=== PATIENT | male | born 1950 | race Caucasian/White ===

== ENCOUNTER 2016-06-21 13:45 | Outpatient (CLI) | payer MEDICARE | END 2016-06-21 13:46 | disposition home or self-care (01) | DX: Z85.46 Personal history of malignant neoplasm of prostate (principal) ==

== ENCOUNTER 2016-08-06 13:05 | Outpatient (CLI) | payer MEDICARE ==
[2016-08-06] MEDS ORDERED: ALBUTEROL NEB 2.5 MG/3 ML INH ONE (13:41)
== END 2016-08-06 13:06 | disposition home or self-care (01) ==
DX: R06.2 Wheezing (principal); R06.09 Other forms of dyspnea
CPT/HCPCS: 71020; 94060; J7613

== ENCOUNTER 2017-01-28 10:53 | Outpatient (CLI) | payer MEDICARE | END 2017-01-28 10:54 | disposition home or self-care (01) | LOC: LAB 10:53 | PROVIDERS: ATTEND Urology | DX: Z85.46 Personal history of malignant neoplasm of prostate (principal) | CPT/HCPCS: 36415; 84153 ==

== ENCOUNTER 2017-09-05 13:51 | Outpatient (CLI) | payer MEDICARE | END 2017-09-05 13:52 | disposition home or self-care (01) | LOC: LAB 13:51 | PROVIDERS: ATTEND Urology | DX: C61 Malignant neoplasm of prostate (principal) | CPT/HCPCS: 36415; 84153 ==

== ENCOUNTER 2018-03-16 07:19 | Outpatient (CLI) | payer MEDICARE ==
[2018-03-16 07:41] LABS: BASOPHILS % (AUTO) 0.7 %; EOSINOPHILS # (AUTO) 0.6 10^3/uL (0.0-0.7); EOSINOPHILS % (AUTO) 10.8 %; HGB - HEMOGLOBIN 14.2 g/dL (14.0-18.0); LYMPHOCYTES # (AUTO) 2.4 10^3/uL (1.5-3.5); LYMPHOCYTES % (AUTO) 40.9 %; MEAN CORPUSCULAR HEMOGLOBIN 31.3 pg (27.0-31.0); MEAN CORPUSCULAR HGB CONC 34.2 g/dL (32.0-36.0); MEAN CORPUSCULAR VOLUME 91.7 fL (80.0-94.0); MEAN PLATELET VOLUME 7.2 fL (7.4-11.4); MONOCYTES # (AUTO) 0.7 10^3/uL (0.0-1.0); MONOCYTES % (AUTO) 12.6 %; PLT - PLATELET COUNT 152 10^3/uL (130-450); RED BLOOD COUNT 4.54 10^6/uL (4.70-6.10); RED CELL DISTRIBUTION WIDTH 14.3 % (12.0-15.0); WHITE BLOOD COUNT 5.8 x10^3/uL (4.8-10.8)
[2018-03-16 08:02] LABS: ALBUMIN/GLOBULIN RATIO 1.2 (1.0-2.2); ALKALINE PHOSPHATASE 51 IU/L (42-121); ALT ALANINE AMINOTRANSFERASE 28 IU/L (10-60); AST ASPARTATE AMINOTRANSFERASE 28 IU/L (10-42); BILIRUBIN,TOTAL 0.9 mg/dL (0.2-1.0); BUN - BLOOD UREA NITROGEN 19 mg/dL (6-20); CALCIUM 8.8 mg/dL (8.5-10.3); CARBON DIOXIDE - CO2 28 mmol/L (21-32); CHLORIDE 105 mmol/L (101-111); CHOL/HDL RATIO 3.4 (<5.0); CHOLESTEROL 155 mg/dL; CREATININE 1.2 mg/dL (0.6-1.2); GFR - MDRD 60 (>89); GLUCOSE 102 mg/dL (70-100); HDL CHOLESTEROL 46 mg/dL; LDL CHOLESTEROL,CALCULATED 80 mg/dL; LDL/HDL RATIO 1.7 (<3.6); SODIUM 137 mmol/L (135-145); TOTAL PROTEIN 7.3 g/dL (6.7-8.2); VLDL CHOLESTEROL 29 mg/dL
== END 2018-03-16 07:20 | disposition home or self-care (01) ==
LOC: LAB 07:19
PROVIDERS: ATTEND Physician Assistant
DX: Z79.899 Other long term (current) drug therapy (principal); E78.5 Hyperlipidemia, unspecified
CPT/HCPCS: 36415; 80053; 80061; 83721; 85025

== ENCOUNTER 2018-03-20 09:57 | Outpatient (CLI) | payer MEDICARE | END 2018-03-20 09:58 | disposition home or self-care (01) | LOC: LAB 09:57 | PROVIDERS: ATTEND Urology | DX: C61 Malignant neoplasm of prostate (principal) | CPT/HCPCS: 36415; 84153 ==

== ENCOUNTER 2018-09-01 11:12 | Outpatient (CLI) | payer MEDICARE | END 2018-09-01 11:13 | disposition home or self-care (01) | LOC: LAB 11:12 | PROVIDERS: ATTEND Urology | DX: Z85.46 Personal history of malignant neoplasm of prostate (principal) | CPT/HCPCS: 36415; 84153 ==

== ENCOUNTER 2018-10-31 15:16 | Outpatient (CLI) | payer MEDICARE ==
--- NOTE | 2018-11-02 08:46 | MRI Report ---
Reason: NUMBNESS AND TINGLING IN LEFT ARM AND LEG,TIA Procedure Date: 10/31/2018 Accession Number: [id number] / [id number] Procedure: MRI - Angio Brain W/O (MRA) CPT Code: FULL RESULT: EXAM MRA BRAIN EXAM DATE: 10/31/2018 03:46 PM. CLINICAL HISTORY: Numbness and tingling in left arm and leg, TIA. COMPARISON: BRAIN W/O 10/31/2018 4:03 PM, NECK ANGIO W/O 10/31/2018 4:29 PM. TECHNIQUE: Multiplanar, multisequence MRA sequences of the brain were performed. Other: None. Post-processing: Multiplanar 3D MIP reconstructions. IV Contrast: None. FINDINGS: RIGHT Internal Carotid (ICA): No aneurysm, stenosis or anomaly. Middle Cerebral (MCA): No aneurysm, stenosis or anomaly. Anterior Cerebral (CHOLO): No aneurysm, stenosis or anomaly. Posterior Cerebral (AUDIO ENGINEER): No aneurysm, stenosis or anomaly. Posterior Communicating (P-COM): Not visualized. Vertebral: No aneurysm, stenosis or anomaly in the visualized upper vertebral artery. LEFT Internal Carotid (ICA): No aneurysm, stenosis or anomaly. Middle Cerebral (MCA): No aneurysm, stenosis or anomaly. Anterior Cerebral (CHOLO): No aneurysm, stenosis or anomaly. Posterior Cerebral (AUDIO ENGINEER): No aneurysm, stenosis or anomaly. Posterior Communicating (P-COM): Not visualized. Vertebral: No aneurysm, stenosis or anomaly in the visualized upper vertebral artery. MIDLINE Anterior Communicating (A-COM): No aneurysm, stenosis or anomaly. Basilar Artery:No aneurysm, stenosis or anomaly. Other: None. IMPRESSION: 1. Negative brain MRA. No stenoses or aneurysms. RADIA
--- NOTE | 2018-11-02 08:46 | MRI Report ---
Reason: NUMBNESS AND TINGLING IN LEFT ARM AND LEG,TIA Procedure Date: 10/31/2018 Accession Number: [id number] / [id number] Procedure: MRI - Angio Neck W/O (MRA) CPT Code: FULL RESULT: EXAM: MR ANGIOGRAM NECK, WITHOUT CONTRAST EXAM DATE: 10/31/2018 04:29 PM. CLINICAL HISTORY: Numbness and tingling in left arm and leg, TIA. COMPARISON: BRAIN W/O 10/31/2018 4:03 PM, BRAIN ANGIO W/O 10/31/2018 3:46 PM. TECHNIQUE: Axial 2D [id number] MRA sequences of the neck were performed. Axial 3D mhgl-vg-skmgge centered at the carotid bifurcation. Axial T1 with fat saturation through the neck. Other: None. Post-processing: Multiplanar 3D MIP reconstructions. IV Contrast: None. Evaluation of arterial stenosis is based on a NASCET method of measurement. FINDINGS: The aortic arch and origin of great vessels is not included on this study. RIGHT Common Carotid: Patent. No dissection or significant stenosis. Internal Carotid: Patent. No dissection or significant stenosis. External Carotid: Patent. No dissection or significant stenosis. Vertebral: Patent. No dissection or significant stenosis. LEFT Common Carotid: Patent. No dissection or significant stenosis. Internal Carotid: Patent. No dissection or significant stenosis. Note is made of a vascular loop in the proximal cervical ICA. External Carotid: Patent. No dissection or significant stenosis. Vertebral: Patent. No dissection or significant stenosis. Intracranial Circulation: (See report of MRA of the head performed same time.) Other: The soft tissues, bones, and lung apices are unremarkable. IMPRESSION: 1. Unremarkable noncontrast neck MRA. No hemodynamically significant stenoses. RADIA
--- NOTE | 2018-11-02 08:46 | MRI Report ---
Reason: NUMBNESS AND TINGLING IN LEFT ARM AND LEG,TIA Procedure Date: 10/31/2018 Accession Number: [id number] / [id number] Procedure: MRI - Brain W/O CPT Code: FULL RESULT: EXAM: MRI BRAIN WITHOUT CONTRAST EXAM DATE: 10/31/2018 04:03 PM. CLINICAL HISTORY: Numbness and tingling in left arm and leg, TIA. COMPARISON: BRAIN ANGIO W/O 10/31/2018 3:46 PM, NECK ANGIO W/O 10/31/2018 4:29 PM. TECHNIQUE: Multiplanar, multisequence T1-weighted and fluid-sensitive MR sequences of the brain were performed. Sequences optimized for routine evaluation. Other: None. IV Contrast: None. FINDINGS: Brain Volume: Normal for age. Parenchyma/Dura: No mass, acute infarct or hemorrhage. There are a few scattered foci of T2/FLAIR bright white matter signal seen in the cerebral hemispheres. No cortical signal abnormality. Ventricles/Cisterns: Mild prominence to the ventricular system is seen slightly out of proportion overlying cortical sulci. No increased callosal angle. No hydrocephalus. No abnormal extra-axial fluid collection or hemorrhage. Orbits: Note is made of disconjugate gaze. Orbits are otherwise unremarkable. Sella [place]: The pituitary gland, cavernous sinuses, suprasellar cistern and optic chiasm are unremarkable. IAC: Symmetric and unremarkable. Vasculature: Normal signal flow void is seen in the major arterial structures at the skull base. Sinuses: No acute appearing sinus disease. Mild mucosal thickening is seen inferiorly in the left maxillary sinus and scattered in bilateral ethmoid air cells. Bones: No focal pathologic appearing marrow signal changes. Other: None. IMPRESSION: 1. Negative noncontrast MRI of the brain. No acute abnormality. No infarct, mass, or hemorrhage. 2. Mild scattered foci of T2/FLAIR bright white matter signal are noted in the cerebral hemispheres. This is nonspecific. This can be seen secondary to small vessel ischemic change. RADIA
== END 2018-10-31 15:17 | disposition home or self-care (01) ==
LOC: DI 15:16
PROVIDERS: ATTEND Physician Assistant
DX: G45.9 Transient cerebral ischemic attack, unspecified (principal); R20.2 Paresthesia of skin
CPT/HCPCS: 70544; 70547; 70551

== ENCOUNTER 2019-02-17 13:48 | Outpatient (CLI) | payer MEDICARE | END 2019-02-17 13:49 | disposition home or self-care (01) | LOC: LAB 13:48 | PROVIDERS: ATTEND Urology | DX: Z85.46 Personal history of malignant neoplasm of prostate (principal) | CPT/HCPCS: 36415; 84153 ==

== ENCOUNTER 2019-09-20 09:47 | Outpatient (CLI) | payer MEDICARE | END 2019-09-20 09:48 | disposition home or self-care (01) | LOC: LAB 09:47 | PROVIDERS: ATTEND Urology | DX: C61 Malignant neoplasm of prostate (principal) | CPT/HCPCS: 36415; 84153 ==

== ENCOUNTER 2020-01-18 07:39 | Outpatient (CLI) | payer MEDICARE ==
[2020-01-18 07:54] LABS: BASOPHILS # (AUTO) 0.1 10^3/uL (0.0-0.1); EOSINOPHILS # (AUTO) 0.6 10^3/uL (0.0-0.7); HGB - HEMOGLOBIN 14.7 g/dL (14.0-18.0); LYMPHOCYTES # (AUTO) 2.9 10^3/uL (1.5-3.5); MEAN CORPUSCULAR HGB CONC 33.9 g/dL (32.0-36.0); MEAN CORPUSCULAR VOLUME 91.4 fL (80.0-94.0); MEAN PLATELET VOLUME 8.9 fL (7.4-11.4); MONOCYTES # (AUTO) 0.9 10^3/uL (0.0-1.0); MONOCYTES % (AUTO) 13.3 %; NEUTROPHILS # (AUTO) 2.5 10^3/uL (1.5-6.6); NEUTROPHILS % (AUTO) 35.4 %; PLT - PLATELET COUNT 159 10^3/uL (130-450); RED BLOOD COUNT 4.74 10^6/uL (4.70-6.10); RED CELL DISTRIBUTION WIDTH 13.9 % (12.0-15.0); WHITE BLOOD COUNT 7.1 x10^3/uL (4.8-10.8)
[2020-01-18 08:20] LABS: ALBUMIN 3.9 g/dL (3.2-5.5); ALBUMIN/GLOBULIN RATIO 1.1 (1.0-2.2); ALKALINE PHOSPHATASE 39 IU/L (42-121); ALT ALANINE AMINOTRANSFERASE 35 IU/L (10-60); AST ASPARTATE AMINOTRANSFERASE 29 IU/L (10-42); BUN - BLOOD UREA NITROGEN 17 mg/dL (6-20); CALCIUM 9.2 mg/dL (8.5-10.3); CARBON DIOXIDE - CO2 32 mmol/L (21-32); CHLORIDE 95 mmol/L (101-111); CHOL/HDL RATIO 3.6 (<5.0); CHOLESTEROL 165 mg/dL; CREATININE 1.1 mg/dL (0.6-1.2); GLUCOSE 103 mg/dL (70-100); HDL CHOLESTEROL 46 mg/dL; LDL CHOLESTEROL,CALCULATED 89 mg/dL; LDL/HDL RATIO 1.9 (<3.6); SODIUM 136 mmol/L (135-145); TOTAL PROTEIN 7.5 g/dL (6.7-8.2); VLDL CHOLESTEROL 30 mg/dL
== END 2020-01-18 07:40 | disposition home or self-care (01) ==
LOC: LAB 07:39
PROVIDERS: ATTEND Physician Assistant
DX: I10 Essential (primary) hypertension (principal); E78.5 Hyperlipidemia, unspecified
CPT/HCPCS: 36415; 80053; 80061; 83721; 85025

== ENCOUNTER 2020-09-12 08:41 | Outpatient (CLI) | payer MEDICARE | END 2020-09-12 08:42 | disposition home or self-care (01) | LOC: LAB 08:41 | PROVIDERS: ATTEND Urology | DX: C61 Malignant neoplasm of prostate (principal) | CPT/HCPCS: 36415; 84153 ==

== ENCOUNTER 2021-04-08 22:23 | Emergency (ER) | payer MEDICARE ==
--- NOTE | 2021-04-08 22:25 | ED Physician Documentation ---
PD HPI CHEST PAIN - Stated complaint Stated Complaint: CP - History obtained from History obtained from: Patient - History of Present Illness Timing - onset: Enter time (18:45), Today Timing - onset during: Rest Timing - details: Abrupt onset, Constant Pain level max: 6 Pain level now: 3 Quality: Pain, Other (burning) Location: Substernal Radiation: Other (no radiation) Improved by: Other (no ameliorating factors) Worsened by: Inspiration Associated symptoms: No: Shortness of air, Diaphoresis, Nausea, Vomiting, Feeling faint / dizzy, General Weakness, Palpitations, Cough Similar symptoms before: Has not had sx before Recently seen: Not recently seen - Additional information Additional information: c/o midline chest burning, onset 6:45 PM tonight while at rest at a [employer] meeting. Review of Systems Constitutional: reports: Reviewed and negative Cardiac: reports: Chest pain / pressure. denies: Palpitations, Pedal edema, Calf pain Respiratory: reports: Reviewed and negative GI: reports: Reviewed and negative Musculoskeletal: denies: Extremity swelling PD PAST MEDICAL HISTORY - Past Medical History Cardiovascular: Hypertension, High cholesterol Respiratory: None Endocrine/Autoimmune: None GI: None : None HEENT: None Psych: None Musculoskeletal: None Derm: None - Past Surgical History General: Colonoscopy, Other HEENT: Tonsil/Adenoidectomy - Present Medications Home Medications: Ambulatory Orders Medication Instructions Recorded Confirmed Bicalutamide 50 mg PO DAILY 08/25/14 04/10/15 Cholecalciferol (Vitamin D3) 4,000 unit PO DAILY 08/25/14 04/07/15 [Vitamin D-3] Loratadine 10 mg PO DAILY 08/25/14 04/07/15 Montelukast [Singulair] 10 mg PO QPM 08/25/14 04/07/15 Multivitamin [Multivitamins] 1 each PO DAILY 08/25/14 04/07/15 [place]-3 Fatty Acids [Fish Oil] 2,400 mg PO DAILY 08/25/14 04/07/15 Simvastatin 80 mg PO QPM 08/25/14 04/07/15 Ubidecarenone [Coq10] 100 mg PO DAILY 08/25/14 04/07/15 Leuprolide Acetate [Lupron 15 mg IM ONCE 04/07/15 04/07/15 Depot-Ped] - Allergies Allergies/Adverse Reactions: Allergies Allergy/AdvReac Type Severity Reaction Status Date / Time No Known Drug Allergies Allergy Verified 09/09/14 10:48 PD ED PE NORMAL - Vitals Vital signs reviewed: Yes - General General: Alert and oriented X 3, No acute distress, Well developed/nourished - Neck Neck: Supple, no meningeal sign - Cardiac Cardiac: RRR, No murmur, No gallop, No rub - Respiratory Respiratory: No respiratory distress, Clear bilaterally - Abdomen Abdomen: Soft, Non tender - Derm Derm: Normal color, Warm and dry Results - Vitals Vitals: Vital Signs - 24 hr 04/08/21 04/08/21 04/08/21 22:31 23:26 23:30 Temperature 36.6 C Heart Rate 95 90 92 Respiratory 21 18 17 Rate Blood Pressure 151/88 H 138/85 H 127/88 H O2 Saturation 95 97 95 04/09/21 04/09/21 00:00 00:30 Temperature Heart Rate 91 100 Respiratory 21 17 Rate Blood Pressure 145/83 H 135/77 H O2 Saturation 96 95 Oxygen O2 Source Room air - EKG (time done) No standard instances Rate: Rate (enter#) (91) Rhythm: NSR [place]: LAD Intervals: Wide QRS (NSIVCD) Ischemia: Q waves (III, aVF), Non specific changes (flat/inverted T waves III, aVF) Computer interpretation: Disagree with computer (no ST elevation) - Labs Labs: Laboratory Tests 04/08/21 04/08/21 04/08/21 22:47 22:47 22:47 WBC 12.2 H RBC 4.93 Hgb 15.2 Hct 44.2 MCV 89.7 MCH 30.8 MCHC 34.4 RDW 13.7 Plt Count 185 MPV 9.2 Neut # (Auto) 6.9 H Lymph # (Auto) 3.3 [place] # (Auto) 1.2 H Eos # (Auto) 0.7 Baso # (Auto) 0.1 Absolute Nucleated RBC 0.00 Nucleated RBC % 0.0 D-Dimer Sodium 133 L Potassium 2.8 L Chloride 94 L Carbon Dioxide 29 Anion Gap 10.0 BUN 16 Creatinine 1.1 Estimated GFR (MDRD) 66 L Glucose 141 H Calcium 9.5 Total Bilirubin 0.7 AST 29 ALT 37 Alkaline Phosphatase 41 L Troponin I High Sens 7.3 Total Protein 8.0 Albumin 4.1 Globulin 3.9 Albumin/Globulin Ratio 1.1 Lipase 37 04/08/21 23:14 WBC RBC Hgb Hct MCV MCH MCHC RDW Plt Count MPV Neut # (Auto) Lymph # (Auto) [place] # (Auto) Eos # (Auto) Baso # (Auto) Absolute Nucleated RBC Nucleated RBC % D-Dimer 230.4 Sodium Potassium Chloride Carbon Dioxide Anion Gap BUN Creatinine Estimated GFR (MDRD) Glucose Calcium Total Bilirubin AST ALT Alkaline Phosphatase Troponin I High Sens Total Protein Albumin Globulin Albumin/Globulin Ratio Lipase - Rads (name of study) chest xray Radiology: Prelim report reviewed, See rad report PD MEDICAL DECISION MAKING - ED course Complexity details: reviewed results, re-evaluated patient, considered differential, d/w patient ED course: presents with chest pain without significant EKG findings, and no concerning abnormalities on CXR and blood tests (including d-dimer, high sensitivity troponin). Incidentally noted is hypokalemia, given 20meq PO KCL. Results d/w patient, instructed to follow up with his PMD for possible further testing (and likely recheck of potassium level). Return precautions discussed as well. Departure - Departure Disposition: Home, Self Care Clinical Impression: Hypokalemia Chest pain Qualifiers: Chest pain type: unspecified Qualified Code(s): R07.9 - Chest pain, unspecified Condition: Good Instructions: ED Chest Pain Atypical Unkn Cause, ED Potassium Deficiency Follow-Up: Guillermina Donohue ARNP [Primary Care Provider] - Comments: At this time , your tests are reassuring (including EKG, chest xray, and cardiac blood tests). Follow up with your primary care provider; further testing, such as a stress test, might be recommended by your primary care provider depending on careful consideration of the risks and benefits of such testing. Also, your potassium was low tonight; while this is an incidental finding, your primary care provider will likely have this rechecked within the coming weeks. Discharge Date/Time: 04/09/21 00:57
[2021-04-08 22:53] LABS: BASOPHILS # (AUTO) 0.1 10^3/uL (0.0-0.1); BASOPHILS % (AUTO) 0.5 %; EOSINOPHILS # (AUTO) 0.7 10^3/uL (0.0-0.7); EOSINOPHILS % (AUTO) 5.5 %; HCT - HEMATOCRIT 44.2 % (42.0-52.0); HGB - HEMOGLOBIN 15.2 g/dL (14.0-18.0); LYMPHOCYTES # (AUTO) 3.3 10^3/uL (1.5-3.5); LYMPHOCYTES % (AUTO) 27.3 %; MEAN CORPUSCULAR HEMOGLOBIN 30.8 pg (27.0-31.0); MEAN CORPUSCULAR HGB CONC 34.4 g/dL (32.0-36.0); MEAN CORPUSCULAR VOLUME 89.7 fL (80.0-94.0); MEAN PLATELET VOLUME 9.2 fL (7.4-11.4); MONOCYTES # (AUTO) 1.2 10^3/uL (0.0-1.0); MONOCYTES % (AUTO) 9.4 %; NEUTROPHILS # (AUTO) 6.9 10^3/uL (1.5-6.6); NEUTROPHILS % (AUTO) 57.1 %; PLT - PLATELET COUNT 185 10^3/uL (130-450); RED BLOOD COUNT 4.93 10^6/uL (4.70-6.10); RED CELL DISTRIBUTION WIDTH 13.7 % (12.0-15.0); WHITE BLOOD COUNT 12.2 x10^3/uL (4.8-10.8)
[2021-04-08 23:06] LABS: ALBUMIN 4.1 g/dL (3.2-5.5); ALBUMIN/GLOBULIN RATIO 1.1 (1.0-2.2); BILIRUBIN,TOTAL 0.7 mg/dL (0.2-1.0); CALCIUM 9.5 mg/dL (8.5-10.3); CREATININE 1.1 mg/dL (0.6-1.2); POTASSIUM 2.8 mmol/L (3.5-5.0)
--- NOTE | 2021-04-08 23:31 | XRAY Report ---
PROCEDURE: Chest 2 View X-Ray INDICATIONS: chest pain TECHNIQUE: 2 view(s) of the chest. COMPARISON: CXR 08/06/2016 FINDINGS: Surgical changes and devices: None. Lungs and pleura: No pleural effusions or pneumothorax. Lungs are clear. Mediastinum: Mediastinal contours are normal. Heart size is normal. Bones and chest wall: No suspicious bony abnormalities. Soft tissues appear unremarkable. IMPRESSION: No acute cardiopulmonary abnormality. Reviewed by: Ed Robertson MD on 04/08/2021 11:30 PM RUST Approved by: Ed Robertson MD on 04/08/2021 11:30 PM PST Station ID: [id number]
[2021-04-09 00:35] VITALS: BP 135/77
[2021-04-09] MEDS ORDERED: POTASSIUM CHLORIDE 20 MEQ TABLET PO STA (00:35)
== END 2021-04-09 00:57 | disposition home or self-care (01) ==
LOC: ED 22:23
DX: R07.89 Other chest pain (principal); E87.6 Hypokalemia; I10 Essential (primary) hypertension
CPT/HCPCS: 36415; 71046; 80053; 83690; 84484; 85025; 85379; 93005; 99283; 99284; A9270

== ENCOUNTER 2021-04-18 07:23 | Outpatient (CLI) | payer MEDICARE ==
[2021-04-18 07:58] LABS: BASOPHILS # (AUTO) 0.1 10^3/uL (0.0-0.1); BASOPHILS % (AUTO) 1.2 %; EOSINOPHILS # (AUTO) 0.6 10^3/uL (0.0-0.7); EOSINOPHILS % (AUTO) 9.3 %; HCT - HEMATOCRIT 43.6 % (42.0-52.0); HGB - HEMOGLOBIN 14.8 g/dL (14.0-18.0); LYMPHOCYTES # (AUTO) 2.8 10^3/uL (1.5-3.5); LYMPHOCYTES % (AUTO) 41.9 %; MEAN CORPUSCULAR HEMOGLOBIN 30.7 pg (27.0-31.0); MEAN CORPUSCULAR HGB CONC 33.9 g/dL (32.0-36.0); MEAN CORPUSCULAR VOLUME 90.5 fL (80.0-94.0); MEAN PLATELET VOLUME 8.7 fL (7.4-11.4); MONOCYTES # (AUTO) 0.8 10^3/uL (0.0-1.0); NEUTROPHILS # (AUTO) 2.4 10^3/uL (1.5-6.6); NEUTROPHILS % (AUTO) 35.3 %; PLT - PLATELET COUNT 199 10^3/uL (130-450); RED BLOOD COUNT 4.82 10^6/uL (4.70-6.10); RED CELL DISTRIBUTION WIDTH 13.6 % (12.0-15.0); WHITE BLOOD COUNT 6.7 x10^3/uL (4.8-10.8)
[2021-04-18 08:16] LABS: ALBUMIN 3.8 g/dL (3.2-5.5); ALKALINE PHOSPHATASE 40 IU/L (42-121); ALT ALANINE AMINOTRANSFERASE 35 IU/L (10-60); AST ASPARTATE AMINOTRANSFERASE 27 IU/L (10-42); BILIRUBIN,TOTAL 1.2 mg/dL (0.2-1.0); BILIRUBIN,URINE NEGATIVE (NEGATIVE); BUN - BLOOD UREA NITROGEN 16 mg/dL (6-20); CALCIUM 9.3 mg/dL (8.5-10.3); CARBON DIOXIDE - CO2 31 mmol/L (21-32); CHLORIDE 96 mmol/L (101-111); CHOLESTEROL 176 mg/dL; CREATININE 1.1 mg/dL (0.6-1.2); GFR - MDRD 66 (>89); GLUCOSE 107 mg/dL (70-100); GLUCOSE, URINE (UA) NEGATIVE (NEGATIVE); HDL CHOLESTEROL 45 mg/dL; KETONES,URINE (UA) NEGATIVE (NEGATIVE); LDL CHOLESTEROL,CALCULATED 102 mg/dL; LEUKOCYTE ESTERASE, URINE NEGATIVE (NEGATIVE); NITRITE,URINE NEGATIVE (NEGATIVE); OCCULT BLOOD,URINE NEGATIVE (NEGATIVE); POTASSIUM 3.4 mmol/L (3.5-5.0); PROTEIN,URINE NEGATIVE (NEGATIVE); SODIUM 139 mmol/L (135-145); TOTAL PROTEIN 7.8 g/dL (6.7-8.2); TRIGLYCERIDES 146 mg/dL; UROBILINOGEN,URINE 0.2 (NORMAL) E.U./dL (NORMAL); VLDL CHOLESTEROL 29 mg/dL
[2021-04-18 08:17] LABS: CHOL/HDL RATIO 3.9 (<5.0); LDL/HDL RATIO 2.3 (<3.6)
[2021-04-18 08:28] LABS: CLARITY,URINE CLEAR (CLEAR); WBC CLUMPS,URINE NONE SEEN; WBC,URINE 0-3 /HPF (0-3)
[2021-04-18 08:29] LABS: BACTERIA,URINE Rare /HPF (None Seen); RBC,URINE None Seen /HPF (0-5); SQUAMOUS EPITHELIAL CELL,UR RARE Squamous (<= Few)
[2021-04-18 10:17] LABS: ESTIMATED AVERAGE GLUCOSE 126 mg/dL (70-100)
== END 2021-04-18 07:24 | disposition home or self-care (01) ==
LOC: LAB 07:23
PROVIDERS: ATTEND Nurse Practitioner
DX: I10 Essential (primary) hypertension (principal); E78.5 Hyperlipidemia, unspecified; E66.9 Obesity, unspecified; Z85.46 Personal history of malignant neoplasm of prostate
CPT/HCPCS: 36415; 80053; 80061; 81001; 83036; 83721; 84153; 85025; 87086

== ENCOUNTER 2021-09-18 09:57 | Outpatient (CLI) | payer MEDICARE | END 2021-09-18 09:58 | disposition home or self-care (01) | LOC: LAB 09:57 | PROVIDERS: ATTEND Urology | DX: C61 Malignant neoplasm of prostate (principal) | CPT/HCPCS: 36415; 84153 ==

== ENCOUNTER 2022-02-03 02:45 | Emergency (ER) | payer MEDICARE ==
--- NOTE | 2022-02-03 02:48 | ED Physician Documentation ---
PD HPI CHEST PAIN - Stated complaint Stated Complaint: CP - History obtained from History obtained from: Patient - History of Present Illness Timing - onset: Enter time (00:45), Today Timing - onset during: Light activity Timing - details: Abrupt onset Quality: Pain Location: Substernal, Right chest Improved by: Other (sitting up) Worsened by: Position (lying supine) Associated symptoms: No: Shortness of air, Diaphoresis, Nausea, Vomiting, Feeling faint / dizzy, General Weakness, Palpitations, Cough Similar symptoms before: Has not had sx before Recently seen: Not recently seen - Additional information Additional information: patient was awoke from sleep and got up to use bathroom. Walking back to bed from his bathroom, he began to experience right upper anterior chest pain, that has gradually increased and become more pronounced in anterior midline mid/lower chest. He has not had this before. He denies dyspnea. He notes some degree of worsening with lying supine which improves when sitting up. Has not noted any exertional component. He was evaluated in this ED last April (2020; I was the ED physician who evaluated him at that time). He had chest pain on that visit which he feels was different compared to tonludy's symptoms. He had unremarkable ED testing at that time and was discharged home, followed up with cardiology and within 2-3 months, he had several other tests which patient says did not yield any concerning findings nor specific diagnosis. He does recall that he had a stress test, is not sure if he had an echocardiogram, and he did not have angiography/cath. 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 denies: Palpitations, Pedal edema, Calf pain Respiratory: reports: Reviewed and negative GI: reports: Reviewed and negative : denies: Dysuria, Frequency PD PAST MEDICAL HISTORY - Past Medical History Cardiovascular: Hypertension, High cholesterol Respiratory: None Endocrine/Autoimmune: None GI: None : None HEENT: None Psych: None Musculoskeletal: None Derm: None - Past Surgical History General: Colonoscopy, Other HEENT: Tonsil/Adenoidectomy - Present Medications Home Medications: Ambulatory Orders Medication Instructions Recorded Confirmed Cholecalciferol (Vitamin D3) 4,000 unit PO DAILY 08/25/14 02/03/22 [Vitamin D-3] Loratadine 10 mg PO DAILY 08/25/14 02/03/22 Montelukast [Singulair] 10 mg PO QPM 08/25/14 02/03/22 Multivitamin [Multivitamins] 1 each PO DAILY 08/25/14 02/03/22 [place]-3 Fatty Acids [Fish Oil] 2,400 mg PO DAILY 08/25/14 02/03/22 Simvastatin 80 mg PO QPM 08/25/14 02/03/22 Ubidecarenone [Coq10] 100 mg PO DAILY 08/25/14 02/03/22 Leuprolide Acetate [Lupron 15 mg IM ONCE 04/07/15 02/03/22 Depot-Ped] Amlodipine Bes/Olmesartan Med 1 each PO DAILY 02/03/22 02/03/22 [Deysi 5-40 mg Tablet] Colchicine 0.6 mg PO BID #60 tablet 02/03/22 Pantoprazole [Protonix] 40 mg PO DAILY #14 tablet 02/03/22 - Allergies Allergies/Adverse Reactions: Allergies Allergy/AdvReac Type Severity Reaction Status Date / Time No Known Drug Allergies Allergy Verified 02/03/22 02:55 - Social History Does the pt smoke?: No Smoking Status: Never smoker PD ED PE NORMAL - Vitals Vital signs reviewed: Yes - General General: Alert and oriented X 3, No acute distress, Well developed/nourished - Neck Neck: Supple, no meningeal sign - Cardiac Cardiac: RRR - Respiratory Respiratory: No respiratory distress, Clear bilaterally - Abdomen Abdomen: Soft. No: Non tender - Derm Derm: Normal color, Warm and dry - Extremities Extremities: No edema PD ED PE EXPANDED - Cardiac Cardiac: Regular Rate, Rub (biphasic, minimally audible at right 2nd ICS but prominent at cardiac base, increases on inspiration, no positional component (no notable change with supine vs sitting up)) Results - Vitals Vitals: Oxygen O2 Source Room air - EKG (time done) No standard instances Rate: Rate (enter#) (59) Rhythm: NSR [place]: Normal Intervals: Normal IN, Wide QRS (NSIVCD) QRS: Normal Ischemia: Normal ST segments Compare to prior EKG: Unchanged from prior EKG (04/08/21) - Labs Labs: Laboratory Tests 02/03/22 02/03/22 02/03/22 02:56 02:56 02:56 WBC 9.3 RBC 4.89 Hgb 15.0 Hct 44.4 MCV 90.8 MCH 30.7 MCHC 33.8 RDW 13.8 Plt Count 172 MPV 9.3 Neut # (Auto) 4.9 Lymph # (Auto) 2.7 [place] # (Auto) 1.0 Eos # (Auto) 0.7 Baso # (Auto) 0.1 Absolute Nucleated RBC 0.00 Nucleated RBC % 0.0 ESR Sodium 139 Potassium 3.1 L Chloride 99 L Carbon Dioxide 33 H Anion Gap 7.0 BUN 18 Creatinine 1.2 Estimated GFR (MDRD) 59 L Glucose 137 H Calcium 9.3 Total Bilirubin 0.6 AST 29 ALT 35 Alkaline Phosphatase 43 Troponin I High Sens 7.2 C-Reactive Protein Total Protein 7.7 Albumin 4.2 Globulin 3.5 Albumin/Globulin Ratio 1.2 Lipase 36 02/03/22 02/03/22 02:56 02:56 WBC RBC Hgb Hct MCV MCH MCHC RDW Plt Count MPV Neut # (Auto) Lymph # (Auto) [place] # (Auto) Eos # (Auto) Baso # (Auto) Absolute Nucleated RBC Nucleated RBC % ESR 16 Sodium Potassium Chloride Carbon Dioxide Anion Gap BUN Creatinine Estimated GFR (MDRD) Glucose Calcium Total Bilirubin AST ALT Alkaline Phosphatase Troponin I High Sens C-Reactive Protein < 1.0 Total Protein Albumin Globulin Albumin/Globulin Ratio Lipase - Rads (name of study) chest xray Radiology: Prelim report reviewed, See rad report CT chest w/IV contrast Radiology: Prelim report reviewed, See rad report PD MEDICAL DECISION MAKING - ED course Complexity details: reviewed old records, reviewed results, re-evaluated patient, considered differential, d/w patient ED course: chest pain that has a positional component (worse with lying supine), on exam there is a distinct rub that is at least biphasic (at times there is a faint triphasic component). I suspect pericarditis given the findings on cardiac auscultation. I did not note any abnormal cardiac sounds on [facility] chart when I evaluated this patient in April 2021, and patient says he has never been told he has any abnormal heart sounds (such as a murmur). I was unable to obtain adequate images to assess for pericardial effusion using bedside ultrasound, but, notably, patient became increasingly uncomfortable and briefly diaphoretic when he was lying supine for the exam. Echocardiography is not available at [facility] until Friday (two days from this evaluation). His blood tests are without contributory nor concerning findings. Incidental note of hypokalemia (3.1) and he is given PO potassium; he is already taking potassium for hypokalemia. Normal inflammatory markers, including CRP and ESR, can be seen in early perica rditis. Similarly , no findings on EKG to correlate with pericarditis diagnosis but such changes are dependent on phase/timing, and his symptoms began less than three hours prior to arrival. I contacted his cardiology group. Initially I was put in touch with a 2nd grade teacher who says he is only for unassigned patients and I was subsequently put in touch with Dr. Griffin. He recommends colchicine 0.6mg BID, 800mg ibuprofen and Protonix 40mg. He says patient can be then observed in ED to see if symptoms improve, or else admitted to [facility]. I explained that echo will not be available until Friday, and he says patient can have echo in outpatient setting (and can even be discharged from ED) if he is stable and does not need symptomatic treatment beyond the colchicine and ibuprofen (protonix for GI protection vs the high dose ibuprofen). CT chest with IV contrast performed for further evaluation, particularly in light of the difficulty with bedside US imaging. CT shows bilateral atelectasis, small pericardial effusion, and ascending aortic (thoracic) aneurysm 4.1 cm diameter (note that "IMPRESSION" of radiologist's reading indicates descending but the body of the dictation indicates ascending , and when I review the CT images the measurements correlate with ascending diameter of 4.1 and not of the descending aorta). On reevaluation, tests results reviewed with patient. We discussed the recommendations from the 2nd grade teacher and I explained that I would feel comfortable discharging patient once his symptoms are controlled. He says he feels much improved and is comfortable with d/c home. Per uptodate, recommended length of treatment with colchicine for first-time pericarditis is three months and this rx is provided. Patient was given 600mg ibuprofen, as he would prefer this dose rather than the 800mg dose. He is not prescribed ibuprofen as he says he has plenty of this at home. Return precautions were carefully reviewed and he will pursue follow up with his 2nd grade teacher, ideally within this week. Departure - Departure Disposition: 01 Home, Self Care Clinical Impression: Hypokalemia Pericarditis Qualifiers: Pericarditis type: unspecified type Chronicity: acute Qualified Code(s): I30.9 - Acute pericarditis, unspecified Ascending aortic aneurysm Qualifiers: Presence of rupture: without rupture Qualified Code(s): I71.21 - Aneurysm of the ascending aorta, without rupture Condition: Good Instructions: ED Atelectasis Prescriptions: Colchicine 0.6 mg PO BID #60 tablet Pantoprazole [Protonix] 40 mg PO DAILY #14 tablet Comments: The results of the blood tests were unremarkable. The EKG was without concerning findings, as well. On exam, your heart sounds are highly suggestive of acute pericarditis and thus you are being given medication (colchicine) that should result in resolution of the symptoms. In treating a first-time episode of pericarditis, the standard approach is three months of this medication (shorter courses are associated with recurrence of the symptoms). You should also take ibuprofen 400mg-600mg every six hours as needed for pain. You can increase the dose to 800mg every eight hours if lower doses are not effective. You should not take the ibuprofen for more than 10 days in a row due to increasing risk of stomach problems (gastritis) as well as possible kidney problems. A prescription for an acid-blocking medication (protonix) is also being provided to help minimize potential stomach problems from the ibuprofen. Follow up with your 2nd grade teacher, next available appointment, for reevaluation. The CT scan shows a small amount of fluid in the pericardial sac, which is the area between the heart and the surrounding tissue. This is not unusual with pericarditis, and the amount of fluid noted is not significant. Also noted on CT is an aneurysm of the thoracic aorta (the aorta is the largest artery in the body, stemming from the heart and down through the abdomen). The aneurysm does not show any evidence of rupture nor dissection (tearing); either of these complications can be life-threatening. The size of the aneurysm is 4.1 centimeters, which is considered small. You will need further testing regarding this finding (such as echocardiogram), but this can be done in the outpatient setting. Discharge Date/Time: 02/03/22 09:28
[2022-02-03 03:08] LABS: BASOPHILS # (AUTO) 0.1 10^3/uL (0.0-0.1); BASOPHILS % (AUTO) 0.8 %; EOSINOPHILS # (AUTO) 0.7 10^3/uL (0.0-0.7); EOSINOPHILS % (AUTO) 7.8 %; HCT - HEMATOCRIT 44.4 % (42.0-52.0); LYMPHOCYTES # (AUTO) 2.7 10^3/uL (1.5-3.5); LYMPHOCYTES % (AUTO) 28.8 %; MEAN CORPUSCULAR HEMOGLOBIN 30.7 pg (27.0-31.0); MEAN CORPUSCULAR HGB CONC 33.8 g/dL (32.0-36.0); MEAN CORPUSCULAR VOLUME 90.8 fL (80.0-94.0); MEAN PLATELET VOLUME 9.3 fL (7.4-11.4); MONOCYTES % (AUTO) 10.2 %; NEUTROPHILS # (AUTO) 4.9 10^3/uL (1.5-6.6); NEUTROPHILS % (AUTO) 52.2 %; PLT - PLATELET COUNT 172 10^3/uL (130-450); RED BLOOD COUNT 4.89 10^6/uL (4.70-6.10); RED CELL DISTRIBUTION WIDTH 13.8 % (12.0-15.0); WHITE BLOOD COUNT 9.3 x10^3/uL (4.8-10.8)
[2022-02-03 03:21] LABS: ALBUMIN 4.2 g/dL (3.2-5.5); ALBUMIN/GLOBULIN RATIO 1.2 (1.0-2.2); BILIRUBIN,TOTAL 0.6 mg/dL (0.2-1.0); CALCIUM 9.3 mg/dL (8.5-10.3); CREATININE 1.2 mg/dL (0.6-1.2); POTASSIUM 3.1 mmol/L (3.5-5.0); TOTAL PROTEIN 7.7 g/dL (6.7-8.2)
[2022-02-03] MEDS ORDERED: CALCIUM CARBONATE CHEW 500 MG TABLET PO STA (04:10)
[2022-02-03] MEDS ORDERED: COLCHICINE 0.6 MG TABLET PO STA (05:15)
[2022-02-03] MEDS ORDERED: PANTOPRAZOLE 40 MG VIAL IVP STA (05:16)
[2022-02-03] MEDS ORDERED: POTASSIUM CHLORIDE 20 MEQ TABLET PO STA (05:16)
[2022-02-03] MEDS ORDERED: IBUPROFEN 600 MG TABLET PO STA (05:16)
[2022-02-03 09:23] VITALS: BP 113/75
--- NOTE | 2022-02-03 09:27 | XRAY Report ---
PROCEDURE: Chest 2 View X-Ray INDICATIONS: chest pain TECHNIQUE: 2 view(s) of the chest. COMPARISON: None. FINDINGS: Surgical changes and devices: None Lungs and pleura: Minimal left basilar atelectasis Mediastinum: Mediastinal contours are normal. Heart size is normal. Bones and chest wall: No suspicious bony abnormalities. Soft tissues appear unremarkable. IMPRESSION: Minimal left basilar atelectasis. No acute cardiopulmonary findings Note: Final report is concordant with preliminary interpretation provided by [employer] Reviewed by: Julio César Elena MD on 02/03/2022 8:25 AM AKDT Approved by: Julio César Elena MD on 02/03/2022 8:25 AM AKDT Station ID: [id number]
--- NOTE | 2022-02-03 09:33 | CT Report ---
PROCEDURE: CT chest with contrast INDICATIONS: chest pain CONTRAST: IV CONTRAST: Optiray 320 ml: 100 PO CONTRAST: *NO PO CONTRAST TECHNIQUE: After the administration of intravenous contrast, 1 mm axial images were acquired from the pulmonary apices through the posterior costophrenic angles. Axial 5 mm soft tissue kernel reconstructions were performed as well as 8 mm axial MIP and coronal and sagittal 5 mm reformations. For radiation dose reduction, the following was used: automated exposure control, adjustment of mA and/or kV according to patient size. COMPARISON: None. FINDINGS: Image quality: Excellent. Lungs and pleura: No acute air space opacities. No pleural effusions or pneumothorax. Central and peripheral airways are patent and normal in caliber. Mild bibasilar atelectasis noted both lung base s Mediastinum: Heart size is normal. No pericardial effusion. No mediastinal or hilar adenopathy by size criteria. Ascending thoracic aorta measures 4.1 cm, descending thoracic aorta measures 2.6 cm no evidence of dissection or. Esophagus is normal in caliber. No hiatal hernia. Bones and chest wall: No suspicious bony lesions. No vertebral body compression fractures. No axil carrie or supraclavicular adenopathy by size criteria. The thyroid is normal in size and there are no incidental findings.. Abdomen: Visualized upper abdominal solid organs appear normal. Upper abdominal bowel loops are nor mal in caliber. IMPRESSION: 1. No acute findings. Mild platelike atelectasis noted both lung bases. 2. Incidental ascending thoracic aorta measures 4.1 cm without dissection Note: Final report is concordant with preliminary interpretation provided by [employer] Reviewed by: Julio César Elena MD on 02/03/2022 8:32 AM VIN Approved by: Julio César Elena MD on 02/03/2022 8:32 AM [email or web address] Station ID: [id number]
== END 2022-02-03 09:28 | disposition home or self-care (01) ==
LOC: ED 02:45
DX: E87.6 Hypokalemia (principal); I30.9 Acute pericarditis, unspecified; I71.21 Aneurysm of the ascending aorta, without rupture; I10 Essential (primary) hypertension
CPT/HCPCS: 36415; 71046; 71260; 80053; 83690; 84484; 85025; 85651; 86140; 93005; 96374; 99284; A9270; Q9967

== ENCOUNTER 2022-09-17 08:58 | Outpatient (CLI) | payer MEDICARE | END 2022-09-17 08:59 | disposition home or self-care (01) | LOC: LAB 08:58 | PROVIDERS: ATTEND Physician Assistant Medical | DX: C61 Malignant neoplasm of prostate (principal) | CPT/HCPCS: 36415; 84153 ==

== ENCOUNTER 2023-02-17 07:32 | Outpatient (CLI) | payer MEDICARE ==
[2023-02-17 07:48] LABS: BASOPHILS # (AUTO) 0.1 10^3/uL (0.0-0.1); EOSINOPHILS # (AUTO) 0.7 10^3/uL (0.0-0.7); EOSINOPHILS % (AUTO) 10.6 %; HCT - HEMATOCRIT 44.3 % (42.0-52.0); HGB - HEMOGLOBIN 14.8 g/dL (14.0-18.0); LYMPHOCYTES # (AUTO) 2.6 10^3/uL (1.5-3.5); LYMPHOCYTES % (AUTO) 38.1 %; MEAN CORPUSCULAR HEMOGLOBIN 30.8 pg (27.0-31.0); MEAN CORPUSCULAR HGB CONC 33.4 g/dL (32.0-36.0); MEAN CORPUSCULAR VOLUME 92.1 fL (80.0-94.0); MEAN PLATELET VOLUME 9.3 fL (7.4-11.4); MONOCYTES # (AUTO) 0.7 10^3/uL (0.0-1.0); MONOCYTES % (AUTO) 10.6 %; NEUTROPHILS # (AUTO) 2.7 10^3/uL (1.5-6.6); NEUTROPHILS % (AUTO) 39.6 %; PLT - PLATELET COUNT 170 10^3/uL (130-450); RED BLOOD COUNT 4.81 10^6/uL (4.70-6.10); RED CELL DISTRIBUTION WIDTH 13.5 % (12.0-15.0); WHITE BLOOD COUNT 6.7 x10^3/uL (4.8-10.8)
[2023-02-17 08:05] LABS: ALBUMIN 4.3 g/dL (3.2-5.5); ALBUMIN/GLOBULIN RATIO 1.3 (1.0-2.2); ALKALINE PHOSPHATASE 45 IU/L (42-121); ALT ALANINE AMINOTRANSFERASE 23 IU/L (10-60); AST ASPARTATE AMINOTRANSFERASE 23 IU/L (10-42); BILIRUBIN,TOTAL 0.9 mg/dL (0.2-1.0); BUN - BLOOD UREA NITROGEN 15 mg/dL (6-20); CALCIUM 9.7 mg/dL (8.5-10.3); CARBON DIOXIDE - CO2 35 mmol/L (21-32); CHLORIDE 100 mmol/L (101-111); CHOL/HDL RATIO 3.2 (<5.0); CHOLESTEROL 149 mg/dL; CREATININE 1.1 mg/dL (0.6-1.3); GFR - MDRD 65 (>89); GLUCOSE 97 mg/dL (74-104); HDL CHOLESTEROL 47 mg/dL; LDL CHOLESTEROL,CALCULATED 81 mg/dL; LDL/HDL RATIO 1.7 (<3.6); POTASSIUM 3.3 mmol/L (3.5-4.5); SODIUM 137 mmol/L (135-145); TOTAL PROTEIN 7.6 g/dL (6.4-8.9); TRIGLYCERIDES 106 mg/dL (48-352); VLDL CHOLESTEROL 21 mg/dL
[2023-02-17 08:18] LABS: THYROID STIMULATING HORMONE 6.66 uIU/mL (0.34-5.60)
[2023-02-17 09:35] LABS: ESTIMATED AVERAGE GLUCOSE 114 mg/dL (70-100); HEMOGLOBIN A1c% 5.6 % (4.27-6.07)
== END 2023-02-17 07:33 | disposition home or self-care (01) ==
LOC: LAB 07:32
PROVIDERS: ATTEND Internal Medicine Cardiovascular Disease
DX: I10 Essential (primary) hypertension (principal); E78.5 Hyperlipidemia, unspecified; I31.9 Disease of pericardium, unspecified; Z13.29 Encounter for screening for other suspected endocrine disorder; Z13.1 Encounter for screening for diabetes mellitus; G62.9 Polyneuropathy, unspecified; R73.03 Prediabetes; C61 Malignant neoplasm of prostate
CPT/HCPCS: 36415; 80053; 80061; 82607; 83036; 83721; 83735; 84153; 84439; 84443; 85025

== ENCOUNTER 2023-05-28 08:34 | Outpatient (CLI) | payer MEDICARE | END 2023-05-28 08:35 | disposition home or self-care (01) | LOC: LAB 08:34 | PROVIDERS: ATTEND Internal Medicine Cardiovascular Disease | DX: I10 Essential (primary) hypertension (principal) | CPT/HCPCS: 36415; 84132 ==

== ENCOUNTER 2023-09-08 07:24 | Outpatient (CLI) | payer MEDICARE | END 2023-09-08 07:25 | disposition home or self-care (01) | LOC: LAB 07:24 | PROVIDERS: ATTEND Physician Assistant Medical | DX: Z08 Encounter for follow-up examination after completed treatment for malignant neoplasm (principal); Z85.46 Personal history of malignant neoplasm of prostate | CPT/HCPCS: 36415; 84153 ==